=== PATIENT | female | born 1985 | race Caucasian/White ===

== ENCOUNTER 2020-08-23 23:37 | Emergency (ER) | payer OTHER ==
[2020-08-24] MEDS ORDERED: Acetaminophen 325 MG TAB ONE (00:14)
[2020-08-24] MEDS ORDERED: Ibuprofen 200 MG TAB ONE (00:15)
[2020-08-24 01:06] LABS: Hemoglobin 13.2 g/dL (12.0-15.5); Mean Corpuscular HGB CONC 34.5 g/dL (32.0-36.0); Mean Corpuscular Hemoglobin 33.4 pg (27.0-33.0); Mean Platelet Volume 9.8 fl (7.4-10.4); Platelet Count 240 10x3/uL (150-450); Red Blood Cell (RBC) Count 3.95 10x6/uL (3.90-5.03); White Blood Cell (WBC) Count 6.3 10x3/uL (3.5-10.5)
[2020-08-24 01:21] LABS: ALT (SGPT) 9 U/L (8-55); AST (SGOT) 18 U/L (5-34); Alkaline Phosphatase 88 U/L (40-110); Anion Gap 13 mmol/L (10-20); BUN (Urea Nitrogen) 11 mg/dL (7.0-18.7); Bilirubin, Total 0.2 mg/dL (0.2-1.2); Calc. Creatinine Clearance 0 mL/min (70-130); Calcium 8.7 mg/dL (7.8-10.44); Carbon Dioxide 20 mmol/L (22-29); Chloride 107 mmol/L (98-107); Glucose 92 mg/dL (70-105); Potassium 3.3 mmol/L (3.5-5.1); Sodium 137 mmol/L (136-145)
[2020-08-24 01:24] LABS: Band 3 % (5-11); Eosinophils 1 % (0-10); Lymphocytes 17 % (21-51); Monocytes 10 % (0-10); Neutrophil 54 % (42-75); Reactive Lymphocytes 15 % (0-10)
[2020-08-24 01:25] LABS: Platelet Morphology Comment Appears Adequate
[2020-08-24 01:26] LABS: MDiff Complete? YES; Manual Diff?? YES; RBC Morphology Normal
== END 2020-08-24 01:54 | disposition home or self-care (01) ==
LOC: CSHERS 23:37
DX: R55 Syncope and collapse (principal); R51.9 Headache, unspecified; F17.200 Nicotine dependence, unspecified, uncomplicated
CPT/HCPCS: 80053; 85025; 93005